=== PATIENT | male | born 2000 ===

== ENCOUNTER 2021-01-11 19:19 | Emergency (ER) | payer MEDICAID ==
[~2021-01-11] VITALS: Ht 190.5 cm; Wt 84.1 kg
[2021-01-11] MEDS ORDERED: LORazepam 2 MG/ML VIAL IM ONE (23:30)
[2021-01-11] MEDS ORDERED: DiphenhydrAMINE HCL 50 MG/ML VIAL IM ONE (23:30)
[2021-01-11] MEDS ORDERED: HALOPERIDOL LACTATE 5 MG/ML VIAL IM ONE (23:30)
[2021-01-12 00:55] VITALS: BP 136/72
[2021-01-12 02:28] LABS: COVID AG,FIA SOURCE NASOPHARYNGEAL
[2021-01-12 02:30] LABS: BASOPHILS % (AUTO) 0.5 % (0.0-2.0); EOSINOPHILS % (AUTO) 1.9 % (1.0-6.0); HEMATOCRIT 43.3 % (41-53); HEMOGLOBIN 14.6 g/dL (13.5-17.5); LYMPHOCYTES # (AUTO) 1.8 K/uL (1.0-4.8); LYMPHOCYTES % (AUTO) 24.9 % (22.0-44.0); MEAN CORPUSCULAR HEMOGLOBIN 31.1 pg (26.0-34.0); MEAN CORPUSCULAR HGB CONC 33.6 G/dL (31.0-37.0); MEAN CORPUSCULAR VOLUME 92 fL (80-100); MONOCYTES # (AUTO) 0.7 K/uL (0.1-1.0); MONOCYTES % (AUTO) 9.8 % (2.0-9.0); NEUTROPHILS # (AUTO) 4.7 K/uL (1.8-7.7); NEUTROPHILS % (AUTO) 62.9 % (40.0-70.0); PLATELET COUNT (AUTO) 213 K/uL (150-450); RED BLOOD CELL COUNT(AUTO) 4.69 MIL/uL (4.50-5.90); RED CELL DISTRIBUTION WIDTH 12.5 % (11.5-14.5)
[2021-01-12 02:39] LABS: ANION GAP 13 mmol/L (8-16); CALCIUM, TOTAL 8.9 mg/dL (8.8-10.5); CARBON DIOXIDE 27 mmol/L (22-29); CHLORIDE 103 mmol/L (98-107); CREATININE 0.85 mg/dL (0.60-1.30); GLOMERULAR FILTR. RATE CALC > 60 mL/min (>60); GLUCOSE,RANDOM 101 mg/dL (70-110); POTASSIUM 3.9 mmol/L (3.5-5.1); SODIUM SERUM 143 mmol/L (136-145); UREA NITROGEN, BLOOD 15 mg/dL (7-18)
[2021-01-12 02:44] LABS: ALANINE AMINOTRANSFERASE 25 U/L (12-78); ALBUMIN 4.1 g/dL (3.4-5.0); ALKALINE PHOSPHATASE 54 U/L (46-116); ASPARTATE AMINOTRANSFERASE 20 U/L (15-37); BILIRUBIN,TOTAL 1.1 mg/dL (0.1-1.0); TOTAL PROTEIN, SERUM 7.8 g/dL (6.4-8.2)
== END 2021-01-12 05:09 | disposition short-term general hospital (02) ==
LOC: EMS 19:19
DX: F31.9 Bipolar disorder, unspecified (principal); F20.9 Schizophrenia, unspecified; Z20.822 Contact with and (suspected) exposure to COVID-19
CPT/HCPCS: 80053; 85025; 87426; 96372; 99291; G0480; J1200; J1630; J2060